=== PATIENT | female | born 1935 | race Caucasian/White ===

== ENCOUNTER → 2021-02-04 | Outpatient (CLI) | payer OTHER | LOC: KOH-I 14:40 | DX: R51.9 Headache, unspecified (principal); R42 Dizziness and giddiness; G31.9 Degenerative disease of nervous system, unspecified | CPT/HCPCS: 70551 ==

== ENCOUNTER 2021-10-07 08:18 | Emergency (ER) | payer MEDICARE, OTHER ==
[2021-10-07 09:08] LABS: HEMOGLOBIN 13.7 gm/dl (12.3-15.3); RED BLOOD COUNT 4.45 M/UL (4.00-5.10); WHITE BLOOD COUNT 6.6 K/UL (4.5-11.0)
== END 2021-10-07 11:45 | disposition home or self-care (01) ==
LOC: ER1 08:18
PROVIDERS: Emergency Medicine
DX: R51.9 Headache, unspecified (principal); I48.91 Unspecified atrial fibrillation; K21.9 Gastro-esophageal reflux disease without esophagitis
CPT/HCPCS: 70450; 72125; 80053; 85025; 85652; 99284